=== PATIENT | male | born 1960 | race Caucasian/White ===

== ENCOUNTER → 2023-01-01 | Outpatient (CLI) | payer MEDICARE, MEDICAID ==
[~2023-01-01] MED LIST: AMLO2.5T3 PO; ATOR1TAB21 PO; DOCU100C16 PO; GABA-282 PO; OMEP-173 PO; ONDA-84 PO; OXYC10TA3 PO; OXYC20TA40 PO; PRED10TA2 PO; TAMS1CAP17 PO; VENL150C43 PO
[2023-01-01 14:55] LABS: BASO # 0.1 10^3/uL (0.0-0.2); BASO % 0.6 % (0.0-1.0); EOS % 0.1 % (0.0-3.0); HEMATOCRIT 40.8 % (42.0-52.0); HEMOGLOBIN 13.3 g/dl (13.5-17.5); LYMPH # 1.5 10^3/uL (1.5-5.0); LYMPH % 11.4 % (24.0-44.0); MEAN CORPUSCULAR HEMOGLOBIN 29.4 pg (27.0-33.0); MEAN CORPUSCULAR HGB CONC 32.6 g/dl (32.0-36.5); MEAN CORPUSCULAR VOLUME 90.3 fl (80.0-96.0); MONO # 1.1 10^3/uL (0.0-0.8); MONO % 8.1 % (2.0-8.0); NEUTROPHILS # 10.1 10^3/uL (1.5-8.5); NEUTROPHILS % 77.9 % (36.0-66.0); PLATELET COUNT, AUTOMATED 328 10^3/uL (150-450); RED BLOOD COUNT 4.52 10^6/uL (4.30-6.10); WHITE BLOOD COUNT 12.9 10^3/uL (4.0-10.0)
[2023-01-01 15:18] LABS: ALBUMIN 3.5 G/DL (3.2-5.2); ALKALINE PHOSPHATASE 75 U/L (46-116); ALT/SGPT 18 U/L (7.0-40); AST/SGOT < 8 U/L (<34); BILIRUBIN,TOTAL 0.4 MG/DL (0.3-1.2); BLOOD UREA NITROGEN 18 MG/DL (9-23); CALCIUM LEVEL 9.5 MG/DL (8.3-10.6); CARBON DIOXIDE LEVEL 29 MMOL/L (20-31); CHLORIDE LEVEL 101 MMOL/L (98-107); GLOMERULAR FILTRATION RATE > 60.0 (>49); GLUCOSE, FASTING 80 MG/DL (74-106); SODIUM LEVEL 137 MMOL/L (136-145); TOTAL PROTEIN 6.7 G/DL (5.7-8.2)
== END ==
LOC: M ONCR 12:38
PROVIDERS: ATTEND General Practice
DX: C61 Malignant neoplasm of prostate (principal); C79.51 Secondary malignant neoplasm of bone; F17.210 Nicotine dependence, cigarettes, uncomplicated; E78.5 Hyperlipidemia, unspecified; I10 Essential (primary) hypertension; K57.90 Diverticulosis of intestine, part unspecified, without perforation or abscess without bleeding; N40.0 Benign prostatic hyperplasia without lower urinary tract symptoms; Z71.2 Person consulting for explanation of examination or test findings; Z79.52 Long term (current) use of systemic steroids; Z79.891 Long term (current) use of opiate analgesic; Z79.899 Other long term (current) drug therapy; Z80.0 Family history of malignant neoplasm of digestive organs; Z80.1 Family history of malignant neoplasm of trachea, bronchus and lung
CPT/HCPCS: 36415; 80053; 84153; 85025; G0463

== ENCOUNTER → 2023-02-04 | Outpatient (CLI) | payer MEDICARE, MEDICAID ==
[~2023-02-04] VITALS: Ht 175.3 cm; Wt 103.5 kg
[~2023-02-04] MED LIST changes: +PRED20TA PO; +XOFIGO(RADIUM-223 DICHLORIDE) 180UCI 6ML VL CHARGE IS PER UCI IV STA
[2023-02-04 13:54] VITALS: BP 122/80; TEMP 97.7; O2SAT 99
== END ==
LOC: M ONCR 13:39
PROVIDERS: ATTEND General Practice
DX: C61 Malignant neoplasm of prostate (principal); C79.51 Secondary malignant neoplasm of bone
CPT/HCPCS: 77300; 79005; A9606

== ENCOUNTER → 2023-03-05 | Outpatient (CLI) | payer MEDICARE, MEDICAID ==
[~2023-03-05] VITALS: Ht 175.3 cm; Wt 103.5 kg
== END ==
LOC: M ONCR 13:47
PROVIDERS: ATTEND General Practice
DX: C61 Malignant neoplasm of prostate (principal); C79.51 Secondary malignant neoplasm of bone
CPT/HCPCS: 79101; A9606; G0463

== ENCOUNTER → 2023-04-16 | Outpatient (CLI) | payer MEDICARE, MEDICAID ==
[~2023-04-16] VITALS: Ht 175.3 cm; Wt 99.2 kg
[2023-04-16 15:16] VITALS: BP 153/87
== END ==
LOC: M ONCR 14:11
PROVIDERS: ATTEND General Practice
DX: C61 Malignant neoplasm of prostate (principal); C79.51 Secondary malignant neoplasm of bone; Z92.3 Personal history of irradiation
CPT/HCPCS: 79101; A9606; G0463

== ENCOUNTER → 2023-05-07 | Outpatient (CLI) | payer MEDICARE, MEDICAID | LOC: M ONCR 09:53 | PROVIDERS: ATTEND General Practice | DX: C61 Malignant neoplasm of prostate (principal); C79.51 Secondary malignant neoplasm of bone | CPT/HCPCS: 79101; A9606; G0463 ==

== ENCOUNTER → 2023-06-04 | Outpatient (CLI) | payer MEDICARE, MEDICAID ==
[~2023-06-04] MED LIST changes: +OXYC40TA40 PO
== END ==
LOC: M ONCR 10:10
PROVIDERS: ATTEND General Practice
DX: C61 Malignant neoplasm of prostate (principal); C79.51 Secondary malignant neoplasm of bone; Z79.891 Long term (current) use of opiate analgesic
CPT/HCPCS: 79101; A9606; G0463

== ENCOUNTER → 2023-07-02 | Outpatient (CLI) | payer MEDICARE, MEDICAID ==
[~2023-07-02] VITALS: Ht 167.6 cm; Wt 92.4 kg
== END ==
LOC: M ONCR 12:45
PROVIDERS: ATTEND General Practice
DX: C61 Malignant neoplasm of prostate (principal); C79.51 Secondary malignant neoplasm of bone
CPT/HCPCS: 79101; A9606; G0463

== ENCOUNTER → 2023-08-18 | Outpatient (CLI) | payer MEDICARE, MEDICAID ==
[~2023-08-18] MED LIST changes: +OXYC20TA2 PO; -XOFIGO(RADIUM-223 DICHLORIDE) 180UCI 6ML VL CHARGE IS PER UCI IV STA
[2023-08-18 15:09] LABS: BASO % 0.2 % (0.0-1.0); EOS % 0.2 % (0.0-3.0); HEMATOCRIT 31.3 % (42.0-52.0); HEMOGLOBIN 10.4 g/dl (13.5-17.5); LYMPH # 0.5 10^3/uL (1.5-5.0); MEAN CORPUSCULAR HEMOGLOBIN 30.5 pg (27.0-33.0); MEAN CORPUSCULAR HGB CONC 33.2 g/dl (32.0-36.5); MEAN CORPUSCULAR VOLUME 91.8 fl (80.0-96.0); MONO # 0.4 10^3/uL (0.0-0.8); MONO % 7.2 % (2.0-8.0); NEUTROPHILS # 3.6 10^3/uL (1.5-8.5); NEUTROPHILS % 74.4 % (36.0-66.0); PLATELET COUNT, AUTOMATED 115 10^3/uL (150-450); RED BLOOD COUNT 3.41 10^6/uL (4.30-6.10); WHITE BLOOD COUNT 4.8 10^3/uL (4.0-10.0)
[2023-08-18 15:34] LABS: PROSTATIC SPECIFIC AG MONITOR 47.01 NG/ML (< 4.00)
[2023-08-18 15:38] LABS: ALKALINE PHOSPHATASE 72 U/L (46-116); ALT/SGPT 10 U/L (7.0-40); AST/SGOT 23 U/L (<34); BILIRUBIN,TOTAL 0.4 MG/DL (0.3-1.2); BLOOD UREA NITROGEN 15 MG/DL (9-23); CARBON DIOXIDE LEVEL 28 MMOL/L (20-31); CHLORIDE LEVEL 106 MMOL/L (98-107); CREATININE FOR GFR 0.65 MG/DL (0.70-1.30); GLOMERULAR FILTRATION RATE > 60.0 (>49); GLUCOSE, FASTING 77 MG/DL (74-106); SODIUM LEVEL 140 MMOL/L (136-145); TOTAL PROTEIN 6.1 G/DL (5.7-8.2)
== END ==
LOC: M ONCR 13:35
PROVIDERS: ATTEND General Practice
DX: C61 Malignant neoplasm of prostate (principal); C79.51 Secondary malignant neoplasm of bone; G89.3 Neoplasm related pain (acute) (chronic); Z71.2 Person consulting for explanation of examination or test findings; F17.210 Nicotine dependence, cigarettes, uncomplicated; Z79.52 Long term (current) use of systemic steroids; Z79.891 Long term (current) use of opiate analgesic; Z79.899 Other long term (current) drug therapy; Z92.29 Personal history of other drug therapy; Z92.3 Personal history of irradiation
CPT/HCPCS: 36415; 80053; 84153; 85025; G0463